=== PATIENT | male | born 1930 | race Caucasian/White ===

== ENCOUNTER 2016-12-19 02:23 | Observation (INO) | payer MEDICARE, BC ==
[~2016-12-19 02:23] MED LIST: ATENOLOL25 MG PO; CETIRIZINE HCL10 MG PO; CHOLESTYRAMINE; COZAAR100 M1 PO; ENALAPRIL MALEA20 MG; ENALAPRIL MALEA20 MG PO; GLUCOPHAGE500 MG; HYDROCHLOROTHIA25 MG PO; IMDUR30 M1 PO; LIPITOR80 M1 PO; METFORMIN HCL500 MG PO; MICRONASE5 MG; NORVASC5 M2 PO; NOVOLIN N100 U/ML SQ; NOVOLIN N100 UNIT/2 SQ; NOVOLIN R100 U/ML SQ; NOVOLIN R100 UNIT/1 SQ; OMEPRAZOLE20 M1; OMEPRAZOLE20 M3 PO; RANEXA1000 M1 PO; ZOCOR20 MG; ZYRTEC10 M
[2016-12-19] MEDS ORDERED: TOPROL XL25 M1 PO (02:30)
[2016-12-19] MEDS ORDERED: ISOSORBIDE DINI10 M1 PO (02:31)
[2016-12-19] MEDS ORDERED: ZYRTEC10 M7 PO (02:32)
[2016-12-19] MEDS ORDERED: TYLENOL EXTRA500 M1 PO (02:32)
[2016-12-19] MEDS ORDERED: LANTUS SOL100 UNIT/1 SC (02:33)
[2016-12-19 02:53] LABS: BASO % 0.1 % (0-2); EOSINOPHIL ABSOLUTE COUNT 0.1 tho/cmm (0.0-0.7); HCT-HEMATOCRIT 42.9 % (36.0-53.5); HGB-HEMOGLOBIN 15.1 gm/dl (13.5-17.0); IMMATURE GRANULOCYTES ABSOLUTE 0.03 tho/cmm (0-0.03); IMMATURE GRANULOCYTES PERCENT 0.4 % (0-0.3); LYMPH % 24.3 % (20-45); LYMPH ABSOLUTE COUNT 1.7 tho/cmm (0.8-4.5); MCH (MEAN CORPUSCULAR HGB) 31.3 pg (28.0-32.0); MCHC MEAN CORPUSCULAR HGB CONC 35.2 % (32.0-36.0); MCV (MEAN CELL VOLUME) 88.8 fl (82.0-96.0); MEAN PLATELET VOLUME 10.7 cmc (9.4-12.4); MONO % 6.9 % (0-12); MONOCYTE ABSOLUTE COUNT 0.5 tho/cmm (0.0-1.2); NEUTROPHIL ABSOLUTE COUNT 4.5 tho/cmm (1.6-8.0); NEUTROPHIL-AUTOMATED 4.5 tho/cmm (1.6-8.0); NEUTROPHILS % 66.3 % (40-80); PLATELET COUNT 119 tho/cmm (150-450); RED BLOOD COUNT 4.83 mil/cmm (4.40-5.70); RED CELL DISTRIBUTION WIDTH 12.6 % (12.4-16.4); WHITE BLOOD COUNT 6.8 tho/cmm (4.0-10.0)
[2016-12-19 03:08] LABS: ANION GAP 11 mmol/L (0-20); BLOOD UREA NITROGEN 29 mg/dl (6-24); CALCIUM 8.6 mg/dl (8.5-10.5); CARBON DIOXIDE-VENOUS 26 mmol/L (22-32); CHLORIDE 107 mmol/l (96-110); CREATININE 1.47 mg/dl (0.60-1.30); GLUCOSE 166 mg/dL (70-110); POTASSIUM 4.2 mmol/L (3.7-5.1); SODIUM 140 mmol/L (135-145); eGFR VALUE FOR BLACK 49 mL/Min
[2016-12-19] MEDS ORDERED: ASPIRIN EC81 MG PO (03:34)
[2016-12-19] MEDS ORDERED: LOPRESSOR50 M1 PO (05:57)
[2016-12-19] MEDS ORDERED: NOVOLOG FL100 UNIT/2 SC ×2 (09:32→09:35)
[2016-12-19] MEDS ORDERED: SPIRIVA18 MC1 INH (09:37)
== END 2016-12-20 12:58 ==
LOC: EDMED 02:23 → EMR2 07:00 → PCUB 07:33
PROVIDERS: Emergency Medicine; Nurse Practitioner Family; ADMIT Hospitalist
DX: R07.9 Chest pain, unspecified (principal); I25.119 Atherosclerotic heart disease of native coronary artery with unspecified angina pectoris; I48.0 Paroxysmal atrial fibrillation; E78.5 Hyperlipidemia, unspecified; J44.9 Chronic obstructive pulmonary disease, unspecified; K21.9 Gastro-esophageal reflux disease without esophagitis; G47.30 Sleep apnea, unspecified; M19.90 Unspecified osteoarthritis, unspecified site; I12.9 Hypertensive chronic kidney disease with stage 1 through stage 4 chronic kidney disease, or unspecified chronic kidney disease; E11.22 Type 2 diabetes mellitus with diabetic chronic kidney disease; N18.9 Chronic kidney disease, unspecified; I35.1 Nonrheumatic aortic (valve) insufficiency; Z79.4 Long term (current) use of insulin; Z79.82 Long term (current) use of aspirin; Z79.899 Other long term (current) drug therapy; Z88.8 Allergy status to other drugs, medicaments and biological substances; Z87.891 Personal history of nicotine dependence; Z82.49 Family history of ischemic heart disease and other diseases of the circulatory system; Z90.89 Acquired absence of other organs; Z90.49 Acquired absence of other specified parts of digestive tract; Z95.1 Presence of aortocoronary bypass graft; Z98.49 Cataract extraction status, unspecified eye
CPT/HCPCS: A9500; G0378; J1815; J2270; J2785; J7030